=== PATIENT | female | born 1980 | race Caucasian/White ===

== ENCOUNTER 2021-01-20 15:26 | Emergency (ER) | payer OTHER ==
[2021-01-20 17:09] LABS: BASOPHIL 0.5 % (0-2); EOSINOPHIL 2.5 % (0-5); HCT 42.1 % (37.0-47.0); HGB 13.8 g/dl (12.5-16.0); LYMPHOCYTE 29.5 % (15-48); MCHC 32.8 g/dL (32.0-36.0); MCV 97.7 fL (78.0-100.0); MONOCYTE 6.9 % (0-12); MPV 9.1 fL (6.0-9.5); NEUTROPHIL 60.1 % (41-80); NRBC 0; PLT 225 K/uL (150-400); RBC 4.31 M/uL (4.20-5.40); RDW 13.2 % (11.5-14.0)
[2021-01-20 17:10] LABS: BILIRUBIN NEGATIVE (NEGATIVE); BLOOD 3+ Ery/uL (NEGATIVE); CLARITY CLEAR (CLEAR); COLOR YELLOW (YELLOW); GLUCOSE (U) NORMAL (NORMAL); LEUKOCYTES 3+ Leu/uL (NEGATIVE); NITRITE NEGATIVE (NEGATIVE); PROTEIN TRACE (LOW) mg/dL (NEGATIVE); SPECIFIC GRAVITY 1.015 (1.001-1.030); UROBILINOGEN 0.2 mg/dL (0.2-1.0)
[2021-01-20 17:30] LABS: BACTERIA 2+; URINARY WBC 20-50
[2021-01-20 17:31] LABS: ALBUMIN 3.2 g/dL (3.4-5.0); BILIRUBIN - TOTAL 0.2 mg/dL (0.2-1.0); BUN/CREAT RATIO (CALC) 9.9 RATIO; CREATININE 0.81 mg/dL (0.51-0.95); GLOBULIN (CALCULATION) 4.9 g/dL; POTASSIUM 4.5 mmol/L (3.5-5.1); TOTAL PROTEIN 8.1 g/dL (6.4-8.2)
[2021-01-20] MEDS ORDERED: BACTRIM DS TAB1 EACH PO (19:16)
== END 2021-01-20 19:54 | disposition home or self-care (01) ==
LOC: FER 15:26
PROVIDERS: Nurse Practitioner Family
DX: N39.0 Urinary tract infection, site not specified (principal); Z88.1 Allergy status to other antibiotic agents; Z88.6 Allergy status to analgesic agent; Z88.8 Allergy status to other drugs, medicaments and biological substances; Z91.040 Latex allergy status
CPT/HCPCS: 36415; 80053; 81001; 85025; 87088; J1885; J2405; J7030; Q9967